=== PATIENT | female | born 1980 | race Two or more races ===

== ENCOUNTER → 2017-08-02 | Emergency (ER) | payer MEDICARE, MEDICAID ==
[~2017-08-02] VITALS: Ht 162.6 cm; Wt 56.7 kg
[~2017-08-02] MED LIST: IBUPROFEN600 MG ORAL; Morphine Sulfate 10mg/ml Inj IM ONE
[2017-08-02 22:49] VITALS: BP 107/75
[2017-08-02 23:26] VITALS: BP 112/72
[2017-08-03 00:57] LABS: APPEARANCE,URINE CLEAR; BILIRUBIN, URINE NEGATIVE (NEGATIVE); COLOR,URINE PALE YELLOW; GLUCOSE, URINE (UA) NEGATIVE (NEGATIVE); KETONES,URINE NEGATIVE (NEGATIVE); LEUKOCYTE ESTERASE ,URINE 1+ (NEGATIVE); NITRITE,URINE NEGATIVE (NEGATIVE); PH,URINE 6 (4.5-8.0); PROTEIN,URINE NEGATIVE (NEGATIVE); UROBILINOGEN,URINE NORMAL MG/DL (0.0-1.0)
--- NOTE | 2017-08-03 01:02 | Emergency Room Report ---
History of Present Illness General Chief Complaint: Pain Source: Patient Present Illness HPI Is a 37-year-old female with a history of lupus that was diagnosed a few years ago. She has not seen anybody for over 3 years. She was seen a pain specialist in [place] who prescribed her Dilaudid and [place]. She recently moved here to [place]. Hasn't had a doctor follow-up. She stated a group home right now. She presents with chief complaint of body pain and left leg pain that she said is from her lupus. Pain is 10 out of 10. Severe nature. No nausea no vomiting. No radiation. Hard time walking because of the pain. She scheduled to see a pain specialist tomorrow. No trauma. Allergies: Coded Allergies: LEVOFLOXACIN (Verified Allergy, Unknown, 08/02/17) Patient History Past Medical History: see triage record, old chart reviewed Past Surgical History: none Pertinent Family History: none Social History: Denies: smoking Last Menstrual Period: 1yr ago Now: No Immunizations: other Reviewed Nursing Documentation: PMH: Agreed; PSxH: Agreed Nursing Documentation-PMH Hx Cardiac Problems: Yes - OR Hx Seizures: Yes - Lupus Review of Systems Eye: Denies: eye pain, blurred vision ENT: Denies: ear pain, nose congestion, throat swelling Respiratory: Denies: cough, shortness of breath Cardiovascular: Denies: chest pain, palpitations Gastrointestinal: Denies: abdominal pain, diarrhea, nausea, vomiting Musculoskeletal: Reports: joint pain, muscle pain; Denies: back pain Skin: Denies: rash Neurological: Denies: headache, numbness Endocrine: Denies: increased thirst, increased urine Hematologic/Lymphatic: Denies: easy bruising All Other Systems: negative except mentioned in HPI Physical Exam Vital Signs Date Time Temp Pulse Resp B/P (MAP) Pulse Ox O2 Delivery O2 Flow Rate FiO2 08/02/17 22:49 97.4 88 18 107/75 100 Room Air 97.3 vitals normal Sp02 EP Interpretation: reviewed, normal General Appearance: well appearing, no apparent distress, alert Head: normocephalic, atraumatic Eyes: bilateral eye PERRL, bilateral eye EOMI ENT: hearing grossly normal, normal pharynx Neck: full range of motion, supple, no meningismus Respiratory: chest non-tender, lungs clear, normal breath sounds Cardiovascular #1: regular rate, rhythm, no murmur Gastrointestinal: normal bowel sounds, non tender, no mass, no organomegaly, no bruit, non-distended Musculoskeletal: back normal, normal range of motion, tender - diffuse tenderness with palpation Neurologic: alert, oriented x3 Psychiatric: mood/affect normal Skin: warm/dry Medical Decision Making Diagnostic Impression: Primary Impression: SLE exacerbation ER Course Patient presents with exacerbation of her chronic pain. No evidence of DVT. No evidence of infection. Her pain is better controlled now. We'll discharge home. Last Vital Signs Date Time Temp Pulse Resp B/P (MAP) Pulse Ox O2 Delivery O2 Flow Rate FiO2 08/02/17 22:49 97.4 88 18 107/75 100 Room Air 97.3 Status: improved Disposition: HOME, SELF-CARE Condition: Stable Scripts Ibuprofen* (MOTRIN*) 600 Mg Tablet 600 MG ORAL THREE TIMES A DAY, #30 TAB 0 Refills Prov: CORTNEY CORLEY M.D. 08/03/17 Referrals: ARAM BELLA,REFERRING (PCP) Additional Instructions: Follow-up with your pain specialist as scheduled today. Return if symptom worsen. CORTNEY CORLEY M.D. August 03, 2017 01:02
== END | disposition home or self-care (01) ==
LOC: EDBD 22:48 → EMR 23:16
DX: M79.605 Pain in left leg (principal); M32.9 Systemic lupus erythematosus, unspecified; I25.2 Old myocardial infarction; Z88.8 Allergy status to other drugs, medicaments and biological substances
CPT/HCPCS: 96372; 99283; J2270; 80307; 81003; 81025